=== PATIENT | male | born 1960 | race Caucasian/White ===

== ENCOUNTER 2019-04-29 05:08 | Day surgery (SDC) | payer OTHER ==
[~2019-04-29] VITALS: Ht 170.2 cm; Wt 84.4 kg
[2019-04-29] MEDS ORDERED: BACLOFEN10 MG PO (06:50)
[2019-04-29] MEDS ORDERED: RANITIDINE HCL150 M1 PO (06:51)
[2019-04-29] MEDS ORDERED: PROZAC20 MG PO (06:51)
[2019-04-29] MEDS ORDERED: FLOMAX0.4 MG PO (06:51)
[2019-04-29 07:17] VITALS: BP 116/68; Ht 170.2 cm; Wt 84.4 kg
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
--- NOTE | 2019-04-29 11:41 | NUR ---
PT UNABLE TO URINATE AT THIS TIME, WILL CONTINUE TO MONITOR.
--- NOTE | 2019-04-29 12:45 | NUR ---
PT HAS BEEN UNABLE TO URINATE. DR SLATER NOTIFIED AND STATES TO PERFORM IN AND OUT CATH.
--- NOTE | 2019-04-29 12:45 | NUR ---
PT DC INSTRUCTIONS REVIEWED AT THIS TIME, PT VERBALIZES UNDERSTANDING. PT IV REMOVED AT THIS TIME, INTACT, NO REDNESS OR SWELLING NOTED AT SITE.
--- NOTE | 2019-04-29 12:46 | NUR ---
PT LEAVING OPS AT THIS TIME VIA WC WITH ADC STAFF, NAD NOTED.
== END 2019-04-29 12:47 | disposition home or self-care (01) ==
LOC: D.OPS 05:08
PROVIDERS: ATTEND Urology
DX: N32.0 Bladder-neck obstruction (principal); N35.811 Other urethral stricture, male, meatal